=== PATIENT | female | born 1955 | race African-American/Black ===

== ENCOUNTER → 2017-04-17 | Outpatient (CLI) | payer OTHER ==
[~2017-04-17] MED LIST: NOHOMEMEDICATIONS; OCUFLOX10 ML OP
[2017-04-17 12:32] LABS: CALCIUM 9.7 mg/dL (8.5-10.1); CREATININE 1.2 mg/dL (0.6-1.0); POTASSIUM 4.3 mmol/L (3.5-5.1)
== END ==
LOC: CAT 11:22 → LABMALL 11:22
PROVIDERS: Neuromusculoskeletal Medicine & OMM
DX: K76.0 Fatty (change of) liver, not elsewhere classified (principal); Z77.090 Contact with and (suspected) exposure to asbestos

== ENCOUNTER 2018-08-29 10:08 | Emergency (ER) | payer OTHER ==
[~2018-08-29] VITALS: Ht 154.9 cm; Wt 65.8 kg
--- NOTE | ~2018-08-29 | EKG ---
[place] [address] [facility] [place] [address] ELECTROCARDIOGRAM REPORT Name: SCHULZMARII Room #: [facility] [id number] Admission: 08/29/18 Attend Phys: Discharge: 08/29/18 Date of : 57 Report #: [id number] THIS REPORT FOR: //name// [facility] ED Test Date: 2018-08-29 Test Time: 10:15:41 Pat Name: MARII [place] Department: Room: Gender: F [employer]: : [id number] Requested By: Sky Kilogre Order Number: [id number] MD: Jadon Kirkpatrick Measurements Intervals [place] Rate: 69 P: 77 WA: 168 QRS: 54 QRSD: 85 T: 60 QT: 439 QTc: 471 Interpretive Statements Sinus rhythm No significant abnormality Compared to ECG 06/22/2007 14:59:20 No significant changes Electronically Signed On 08-30-2018 8:45:18 [employer]ESS FIN[employer] by Jadon Kirkpatrick [email or web address] <ELECTRONICALLY SIGNED> By: Jadon Kirkpatrick MD, [facility] 08/30/18 [id number] Jadon Kirkpatrick MD, FACC /EPI
[2018-08-29 10:54] LABS: ABSOLUTE NEUTROPHILS 2.9 thou/uL (1.4-8.2); BASOPHILS 0.6 % (0.0-2.0); EOSINOPHILS 4.6 % (0.0-3.0); HEMATOCRIT 37.2 % (37.0-47.0); HEMOGLOBIN 12.5 gm/dL (12.0-15.0); LYMPHOCYTES 34.6 % (24.0-44.0); MCH 27.6 pg (26.0-34.0); MCHC 33.6 g/dL (28.0-37.0); MCV 82.2 fL (80.0-100.0); MONOCYTES 8.2 % (1.0-8.0); PLATELET COUNT 143 thou/uL (150-400); RBC 4.52 mil/uL (4.20-5.00); RDW 15.6 % (10.5-14.5); WBC 5.5 thou/uL (4.0-11.0)
[2018-08-29 11:01] LABS: ANION GAP 7 mmol/L (7-16); BUN 14 mg/dL (7-18); CHLORIDE 104 mmol/L (98-107); CO2 30 mmol/L (21-32); CREATININE 1.2 mg/dL (0.6-1.0); GLUCOSE 86 mg/dL (74-106); SODIUM 141 mmol/L (136-145)
[2018-08-29 11:10] LABS: ALBUMIN 3.6 g/dL (3.4-5.0); SGOT 25 U/L (15-37); SGPT 34 U/L (30-65); TOTAL BILIRUBIN 0.5 mg/dL (<0.1-1.0); TOTAL PROTEIN 7.8 g/dL (6.4-8.2); TROPONIN-I <0.06 ng/mL (<0.06)
[2018-08-29 13:18] VITALS: BP 139/78
== END 2018-08-29 13:19 | disposition home or self-care (01) ==
LOC: ER 10:08
PROVIDERS: Physician Assistant
DX: R07.89 Other chest pain (principal); F17.210 Nicotine dependence, cigarettes, uncomplicated; F20.9 Schizophrenia, unspecified; J45.909 Unspecified asthma, uncomplicated; I10 Essential (primary) hypertension; G35 Multiple sclerosis